=== PATIENT | female | born 1965 | race Two or more races ===

== ENCOUNTER 2024-10-13 15:51 | Emergency (ER) | payer MEDICAID ==
[~2024-10-13] VITALS: Ht 162.6 cm; Wt 73.0 kg
[2024-10-13 15:54] VITALS: O2SAT 98
[2024-10-13] MEDS: HYDROCODONE/ACETAMINOPHEN 5/325MG TABLET PO STA (16:38)
[2024-10-13] MEDS: KETOROLAC 30MG/ML VIAL IM STA (16:39)
[2024-10-13] MEDS: ONDANSETRON 4MG ODT PO STA (16:39)
[2024-10-13 18:39] LABS: BASOPHILS % 0.6 % (0.0-2.0); EOSINOPHILS % 3.8 % (0.0-5.0); HEMATOCRIT. 32.6 % (36.0-48.0); HEMOGLOBIN. 10.6 g/dL (12.0-16.0); LYMPHOCYTES % 17.2 % (20.0-50.0); MEAN CORPUSCULAR HEMOGLOBIN 28.9 pg (28.0-32.0); MEAN CORPUSCULAR HGB CONC 32.5 g/dL (31.0-37.0); MONOCYTES % 5.6 % (2.0-8.0); NEUTROPHILS % 72.8 % (40.0-76.0); PLATELET 295 x1000/uL (130-400); RED BLOOD CELL COUNT 3.66 mill/uL (4.2-5.4); RED CELL DISTRIBUTION WIDTH 13.8 % (11.6-14.6); WHITE BLOOD COUNT 12.5 x1000/uL (4.5-11.0)
[2024-10-13 18:55] LABS: CHLORIDE 105 mEq/L (98-107); POTASSIUM 4.3 mEq/L (3.5-5.1); SODIUM 139 mEq/L (136-145)
[2024-10-13 18:57] LABS: CALCIUM 9.3 mg/dL (8.7-10.4); CARBON DIOXIDE 26 mEq/L (21-32)
[2024-10-13 19:02] LABS: CREATININE 0.8 mg/dL (0.6-1.0); GLUCOSE 234 mg/dL (70-105); UREA NITROGEN BLOOD 18 mg/dL (9-23)
[2024-10-13 19:32] VITALS: BP 140/71; PULSE 85; RESP 17; TEMP 36.7; O2SAT 97
== END 2024-10-13 20:02 | disposition home or self-care (01) ==
LOC: ER 16:13
DX: S09.90XA Unspecified injury of head, initial encounter (principal); M25.551 Pain in right hip; E11.9 Type 2 diabetes mellitus without complications; V89.2XXA Person injured in unspecified motor-vehicle accident, traffic, initial encounter; Y93.01 Activity, walking, marching and hiking; Y92.89 Other specified places as the place of occurrence of the external cause; Y99.8 Other external cause status
CPT/HCPCS: 80048; 85025; 36415; 73502; 71045; 73080; 70450; 70486; 72125; 72128; 72131; 74176; 96372; 99285; Q0162; J1885; Z7610; A4606